=== PATIENT | male | born 1975 | race Two or more races ===

== ENCOUNTER 2018-01-17 07:59 | Emergency (ER) | payer OTHER ==
[~2018-01-17] VITALS: Ht 165.1 cm; Wt 78.6 kg
[2018-01-17] MEDS ORDERED: CEPH250 PO (08:04)
[2018-01-17] MEDS: ONDANSETRON HCL 4 MG TABLET PO ONE (09:40)
[2018-01-17] MEDS: SULFAMETHOX/TRIMETH DS 800-160 MG/TABLET PO ONE (09:40)
[2018-01-17] MEDS: LIDOCAINE 1% 10 ML VIAL INJ ONE (09:40)
[2018-01-17] MEDS: HYDROCODONE/ACETAMINOPHEN 5-325 MG TABLET PO ONE (09:41)
[2018-01-17 11:55] VITALS: BP 135/80
== END 2018-01-17 12:03 | disposition home or self-care (01) ==
LOC: EMS 08:02
DX: L02.31 Cutaneous abscess of buttock (principal)
CPT/HCPCS: 10061; 99284; J3490; Q0162

== ENCOUNTER 2018-01-19 09:32 | Emergency (ER) | payer OTHER ==
[~2018-01-19] VITALS: Ht 160 cm; Wt 77.3 kg
[~2018-01-19 09:32] MED LIST: CEPH250 PO
[2018-01-19 11:56] VITALS: BP 137/79
== END 2018-01-19 11:59 | disposition home or self-care (01) ==
LOC: EMS 09:38
DX: L05.01 Pilonidal cyst with abscess (principal); Z48.01 Encounter for change or removal of surgical wound dressing

== ENCOUNTER 2021-11-07 22:52 | Emergency (ER) | payer OTHER ==
[~2021-11-07] VITALS: Ht 167.6 cm; Wt 170.0 kg
[~2021-11-07 22:52] MED LIST changes: +CEPH-556 PO; -CEPH250 PO
[2021-11-08 01:49] VITALS: BP 121/63
[2021-11-08] MEDS ORDERED: KETOROLAC TROMETHAMINE 60 MG/2 ML VIAL IM ONE (03:00)
[2021-11-08] MEDS ORDERED: HYDROCODONE/ACETAMINOPHEN 5-325 MG TABLET PO ONE (03:00)
[2021-11-08] MEDS ORDERED: BACLOFEN 10 MG TABLET PO ONE (03:00)
[2021-11-08] MEDS ORDERED: IBUP-1554 PO (03:40)
[2021-11-08] MEDS ORDERED: BACL10TA PO (03:40)
[2021-11-08] MEDS ORDERED: HYDR-4723 PO (03:40)
== END 2021-11-08 03:56 | disposition home or self-care (01) ==
LOC: EMS 22:57
DX: M54.42 Lumbago with sciatica, left side (principal)
CPT/HCPCS: 99283; 96372; J1885

== ENCOUNTER 2024-09-23 21:33 | Emergency (ER) | payer OTHER ==
[~2024-09-23] VITALS: Ht 160 cm; Wt 80.0 kg
[~2024-09-23 21:33] MED LIST changes: +BACL10TA PO; +HYDR-4062 PO; +IBUP-1554 PO
[2024-09-23] MEDS ORDERED: 0.9% SODIUM CHLORIDE 10 ML SYRINGE IVP PRN (21:45)
[2024-09-23 21:48] VITALS: TEMP 102.7
[2024-09-23] MEDS: SODIUM CHLORIDE 0.9% 1,600 ML IV ONE (21:56)
[2024-09-23] MEDS: ACETAMINOPHEN 1000 MG/ISO-OSM 100 ML IV ONE (21:57)
[2024-09-23] MEDS: CefTRIAXone 1 GM/DEXTROSE 50 ML IV ONE (22:00)
[2024-09-23 22:11] LABS: PLATELET COUNT (AUTO) 218 K/uL (150-450); RED BLOOD CELL COUNT(AUTO) 4.18 MIL/uL (4.50-5.90); RED CELL DISTRIBUTION WIDTH 13.0 % (11.5-14.5); WHITE BLOOD COUNT (AUTO) 13.5 K/uL (4.5-11.0)
[2024-09-23 22:20] LABS: APPEARANCE,URINE CLEAR (CLEAR); GLUCOSE, URINE (UA) NEGATIVE (NEGATIVE); LEUKOCYTE ESTERASE ,URINE NEGATIVE (NEGATIVE); NITRATE,URINE NEGATIVE (NEGATIVE); OCCULT BLOOD,URINE NEGATIVE (NEGATIVE); SPECIFIC GRAVITIY, URINE 1.016 (1.003-1.030)
[2024-09-23 22:21] LABS: CALCIUM, TOTAL 8.2 mg/dL (8.8-10.5); CREATININE 1.32 mg/dL (0.60-1.30); GLOMERULAR FILTR. RATE CALC 58 mL/min (>60); GLUCOSE,RANDOM 111 mg/dL (70-110); SODIUM SERUM 135 mmol/L (136-145); UREA NITROGEN, BLOOD 20 mg/dL (7-18)
[2024-09-23 22:26] LABS: ASPARTATE AMINOTRANSFERASE 23 U/L (15-37); LACTIC ACID 0.8 mmol/L (0.4-2.0); TOTAL PROTEIN, SERUM 7.7 g/dL (6.4-8.2)
[2024-09-23] MEDS: KETOROLAC TROMETHAMINE 30 MG/ML VIAL IVP ONE (22:41)
[2024-09-23 23:03] LABS: COVID AG,FIA SOURCE NASAL SWAB
[2024-09-23 23:20] LABS: SARS-COV2 (COVID) ANTIGEN,FIA Negative (Negative)
[2024-09-23 23:22] LABS: INFLUENZA TYPE A NEGATIVE FOR TYPE A (NEGATIVE); INFLUENZA TYPE B NEGATIVE FOR TYPE B (NEGATIVE)
[2024-09-23 23:35] VITALS: BP 111/57; PULSE 65; RESP 24; O2SAT 95
== END 2024-09-24 00:09 | disposition home or self-care (01) ==
LOC: EMS 21:33
DX: S39.012A Strain of muscle, fascia and tendon of lower back, initial encounter (principal); J06.9 Acute upper respiratory infection, unspecified; B97.89 Other viral agents as the cause of diseases classified elsewhere; R05.9 Cough, unspecified; Z20.822 Contact with and (suspected) exposure to COVID-19; Z79.899 Other long term (current) drug therapy; X50.0XXA Overexertion from strenuous movement or load, initial encounter; Y93.89 Activity, other specified; Y92.89 Other specified places as the place of occurrence of the external cause; Y99.0 Civilian activity done for income or pay
CPT/HCPCS: 99285; 96365; 96375; 71045; 87426; 80053; 81003; 83605; 83690; 85025; 85610; 87040; 87804; 36415; 93005; 84145; J1885; J0696; J0131